=== PATIENT | male | born 1960 | race Caucasian/White ===

== ENCOUNTER 2019-03-14 20:59 | Emergency (ER) | payer OTHER ==
[~2019-03-14] VITALS: Ht 182.9 cm; Wt 97.1 kg
== END 2019-03-15 00:52 | disposition home or self-care (01) ==
LOC: ER 20:59
DX: K52.9 Noninfective gastroenteritis and colitis, unspecified (principal)

== ENCOUNTER 2019-03-21 07:29 | Emergency (ER) | payer OTHER ==
[~2019-03-21] VITALS: Ht 182.9 cm; Wt 99.8 kg
== END 2019-03-21 13:08 | disposition home or self-care (01) ==
LOC: ER 07:29
DX: I16.0 Hypertensive urgency (principal); I10 Essential (primary) hypertension

== ENCOUNTER 2019-07-04 14:16 | Emergency (ER) | payer OTHER ==
[~2019-07-04] VITALS: Ht 182.9 cm; Wt 96.2 kg
[2019-07-04] MEDS ORDERED: ALTACE5 MG PO (14:24)
== END 2019-07-04 19:05 | disposition home or self-care (01) ==
LOC: ER 14:16
DX: R42 Dizziness and giddiness (principal)

== ENCOUNTER 2019-08-09 14:13 | Emergency (ER) | payer OTHER ==
[~2019-08-09] VITALS: Ht 182.9 cm; Wt 102.1 kg
[~2019-08-09 14:13] MED LIST: ALTACE5 MG PO
== END 2019-08-09 19:54 | disposition home or self-care (01) ==
LOC: ER 14:13
DX: R42 Dizziness and giddiness (principal)

== ENCOUNTER 2022-02-14 08:49 | Day surgery (SDC) | payer OTHER ==
[~2022-02-14] VITALS: Ht 182.9 cm; Wt 97.5 kg
[~2022-02-14 08:49] MED LIST changes: +ATORVASTATIN CA10 MG PO
== END 2022-02-14 19:35 | disposition home or self-care (01) ==
LOC: CIR.AMB 08:49
PROVIDERS: ATTEND Colon & Rectal Surgery
DX: K60.0 Acute anal fissure (principal); K64.2 Third degree hemorrhoids; Z20.822 Contact with and (suspected) exposure to COVID-19; I10 Essential (primary) hypertension; F17.210 Nicotine dependence, cigarettes, uncomplicated